=== PATIENT | female | born 1965 | race Two or more races ===

== ENCOUNTER 2024-10-22 21:26 | Emergency (ER) | payer MEDICAID, OTHER ==
[~2024-10-22] VITALS: Ht 154.9 cm; Wt 73.4 kg
[2024-10-22 22:39] VITALS: BP 119/57; PULSE 77; RESP 18; O2SAT 94
--- NOTE | 2024-10-22 22:41 | ED.PDOC ---
Back pain HPI HPI Comments This is a 58-year-old female presents to the ED chief complaint right hand thumb pain. Patient states prior to arrival she was reaching for the door knob and whacked her dorsum aspect of her right thumb on the door knob. Rates pain /10 describes it as sharp shooting pain from the dorsum aspect of the right thumb up to her elbow. She reports no numbness or weakness. Chief Complaint: Upper Extremity Time Seen by MD: 21:34 Reviewed Notes: Nurses Notes, Medications, Allergies Allergies: Coded Allergies: NO KNOWN ALLERGIES (Unverified , 10/22/24) Home Meds Active Scripts Diclofenac Sodium (Diclofenac Sodium Ec) 50 Mg Tab, 1 TAB PO BID PRN for 10 Days, #20 TAB Prov:DONALD JOHNSON EMMA 10/22/24 Information Source: Patient Mode of Arrival: Ambulatory Constitutional: denies: chills, diaphoresis, fatigue, fever, malaise, sweats, weakness, others EENTM: denies: blurred vision, double vision, ear bleeding, ear discharge, ear drainage, ear pain, ear ringing, eye pain, eye redness, hearing loss, mouth pain, mouth swelling, nasal discharge, nose bleeding, nose congestion, nose pain, photophobia, tearing, throat pain, throat swelling, voice changes, others Respiratory: denies: cough, hemoptysis, orthopnea, SOB at rest, shortness of breath, SOB with excertion, stridor, wheezing, others Cardiovascular: denies: chest pain, dizzy spells, diaphoresis, Dyspnea on exertion, edema, irregular heart beat, left arm pain, lightheadedness, palpitations, PND, syncope, others Gastrointestinal: denies: abdomen distended, abdominal pain, blood streaked bowels, constipated, diarrhea, dysphagia, difficulty swallowing, hematemesis, melena, nausea, poor appetite, poor fluid intake, rectal bleeding, rectal pain, vomiting, others Genitourinary: denies: abnormal vagina bleeding, burning, dyspareunia, dysuria, flank pain, frequency, hematuria, incontinence, pain, , vagina discharge, urgency, others Neurological: denies: dizziness, fainting, headache, left sided numbness, left sided weakness, numbness, paresthesia, pre-existing deficit, right sided num bness, right sided weakness, seizure, speech problems, tingling, tremors, weakness, others Musculoskeletal: reports: others (Right hand thumb pain); denies: back pain, gout, joint pain, joint swelling, muscle pain, muscle stiffness, neck pain Integumetry: denies: bruises, change in color, change in hair/nails, dryness, laceration, lesions, lumps, rash, wounds, others Allergic/Immunocompromised: denies: Difficulty Healing, Frequent Infections, Hives, Itching, others Hematologic/Lymphatic: denies: anemia, blood clots, easy bleeding, easy bruising, swollen glands, others Endocrine: denies: excessive hunger, excessive sweating, excessive thirst, excessive urination, flushing, intolerance to cold, intolerance to heat, unexplained weight gain, unexplained weight loss, others Psychiatric: denies: anxiety, bipolar disorder, depression, hopeless, panic disorder, schizophrenia, sleepless, suicidal, others Physical Exam General Appearance: No Apparent Distress, Normal HEENT: Pharynx Normal Neck: Full Range of Motion, Non-Tender Respiratory: Lungs Clear, No Respiratory Distress, Normal Breath Sounds Cardiovascular: No Murmur, Normal Peripheral Pulses, Regular Rate/Rhythm Breast Exam: Deferred Gastrointestinal: Non Tender, Soft Genitalia: Deferred Pelvic: Deferred Rectal: Deferred Extremities: Normal capillary refill, Normal inspection, Normal range of motion, Non-tender, No pedal edema Musculoskeletal : Location: Right Extremity Location: Thumb (Moderate tenderness palpated over CMC joint noted trace edema without erythema no noted ecchymosis or crepitus no noted bone prominence cap refill less than 3 seconds positive radial pulse.) Apperance: Normal Neurologic: Alert, gas engine mechanic II-XII nml as Tested, No Motor Deficits, Normal Affect, Normal Mood, No Sensory Deficits Cerebellar Function: Normal Reflexes: Normal Skin: Dry, Normal Color, Warm Lymphatic: No Adenopathy Was a procedure done? Was a procedure done?: No Back Pain Differential Dx Differential Diagnosis: Fracture, Musculoskeletal Pain X-Ray, Labs, Meds, VS Vital Signs Date Time Temp Pulse Resp B/P (MAP) Pulse Ox O2 Delivery O2 Flow Rate FiO2 10/22/24 22:39 77 18 94 Room Air 10/22/24 22:39 77 18 119/57 (77) 94 10/22/24 21:41 97.8 86 16 130/48 (75) 96 Current Medications Medications (Trade) Dose Ordered Sig/Nuzhat Route Start Time Stop Time Status Last Admin Ketorolac Tromethamine (Toradol Injection) 60 mg ONCE ONCE IM 10/22/24 22:45 10/22/24 22:46 DC 10/22/24 22:47 X-Ray, Labs, Meds, VS Comment Right hand x-ray shows CMC joint arthritis. Patient was given Toradol 60 mg for the pain she notes improvement pain and function requesting discharge at this time. Outpatient script diclofenac 50 mg twice daily as needed for pain and swelling. Advised to follow up with her PCP in 2-3 days as necessary consider further imaging if symptoms persist. ER return precautions given. Patient agrees with discharge plan of care. Time of 1ST Reevaluation: 23:00 Reevaluation 1ST: Improved Patient Education/Counseling: Diagnosis, Treatment, Prognosis, Need For Follow Up Family Education/Counseling: Diagnosis, Treatment, Prognosis, Need For Follow Up Departure 1 Departure Time of Disposition: 23:00 Impression: Primary Impression: CMC arthritis, thumb, degenerative Qualified Codes: M18.11 - Unilateral primary osteoarthritis of first carpometacarpal joint, right hand Disposition: 01 HOME / SELF CARE / HOMELESS Condition: Stable e-Prescriptions Diclofenac Sodium (Diclofenac Sodium Ec) 50 Mg Tab 1 TAB PO BID PRN for 10 Days, #20 TAB Prov: DONALD JOHNSON 10/22/24 Discharged With: Friend Critical Care Note Critical Care Time?: No Stability Stability form required: DONALD Dykes Oct 22, 2024 22:41
[2024-10-22] MEDS: KETOROLAC TROMETH 60MG/2ML VIAL IM ONE (22:47)
--- NOTE | 2024-10-22 22:58 | DVH ---
CLINICAL INFORMATION: 58 years old, Female; injury/pain/swelling. TECHNIQUE: 3 views of the right hand were obtained. COMPARISON: None FINDINGS: Normal mineralization and alignment. The joint spaces are preserved. Mild 1st CMC joint osteoarthrit is . No acute fracture. Overlying soft tissues are intact. IMPRESSION: 1. No evidence of acute bony abnormality. 2. Mild 1st CMC joint osteoarthritis
[2024-10-22] MEDS ORDERED: DICL50TA4 PO (23:03)
== END 2024-10-22 23:06 | disposition home or self-care (01) ==
LOC: ER 21:26
DX: M18.9 Osteoarthritis of first carpometacarpal joint, unspecified (principal); M19.041 Primary osteoarthritis, right hand
CPT/HCPCS: 73130; 96372; 99283; J1885